=== PATIENT | male | born 1955 | race Caucasian/White ===

== ENCOUNTER 2017-07-10 19:42 | Emergency (ER) | payer OTHER ==
[~2017-07-10] VITALS: Ht 185.4 cm; Wt 72.6 kg
[2017-07-10 20:49] LABS: ABSOLUTE BASOPHIL COUNT 0.1 /CUMM (0.0-0.2); ABSOLUTE EOSINOPHIL COUNT 0.4 /CUMM (0.0-0.7); ABSOLUTE GRANULOCYTE CT 6.2 /CUMM (1.4-6.5); ABSOLUTE LYMPH COUNT 1.4 /CUMM (1.2-3.4); BASOPHIL % 0.9 % (0.0-2.0); EOSINOPHIL % 4.6 % (0-5); HEMATOCRIT 26.1 % (42-52); MEAN CORPUSCULAR HGB 27.2 PG (27.0-31.0); MEAN CORPUSCULAR HGB CONC 32.9 G/DL (33.0-37.0); MEAN CORPUSCULAR VOLUME 82.6 FL (80.0-94.0); MEAN PLATELET VOLUME 6.4 FL (7.4-10.4); PLATELET COUNT 394 /CUMM (130-400); RBC DISTRIBUTION WIDTH 16.2 % (11.5-14.5); RED BLOOD CELL CT 3.16 /CUMM (4.70-6.10); WHITE BLOOD CELL COUNT 9.1 /CUMM (4.8-10.8)
--- NOTE | 2017-07-10 21:20 | ED GENERAL ADULT ---
History of Present Illness General Chief Complaint: General Adult Stated Complaint: [facility], LOW MAGNISIUM LEVEL Source: patient Exam Limitations: no limitations Vital Signs & Intake/Output Vital Signs & Intake/Output Vital Signs Date Time Temp Pulse Resp B/P B/P Pulse O2 O2 Flow FiO2 Mean Ox Delivery Rate 07/10 2210 98.5 70 20 140/79 100 Room Air 07/10 2049 97 Room Air 07/10 2001 98.1 84 18 120/82 98 Room Air Allergies Coded Allergies: Cephalosporins (RASH 07/10/17) hydromorphone (From DILAUDID) (RASH 07/10/17) Reconcile Medications Magnesium Oxide (Mag-Oxide) 200 MG MAGNESIUM TABLET 1 TAB PO DAILY HYPOMAG Triage Note: PT FROM HOME C/O CALLED IN BY MD MAHER OUT OF [facility] INFORMING PT THAT HIS MAG LEVELS ARE DANGEROUSLY LOW AND NEEDS TO BE SEEN IN AN ER RIGHT AWAY. PT IS A&0X3 IN TRIAGE, VSS. PT HAS BEEN IN HOSPITAL THE PAST X2 MONTHS D/T MULTIPLE COMPLICATIONS FROM AORTIC ANEURYSM SX. Triage Nurses Notes Reviewed? yes Onset: Abrupt Duration: day(s): (1), constant, continues in ED Timing: single episode today Injury Environment: home Severity: moderate, severe No Modifying Factors: none HPI: 62 year old male hx of htn, aaa, hld, gerd and anxiety presents for eval of low magnesium. pt was recenlty released from [facility] after a prolonged hospitalization related to aa repair with complications that included felton requiring dialysis. pt reprots he recieved a phone call from a doctor there saying he needed to go to the ED due to hisd mag being very low. pt has never had tghis before. he is feeling weak but otheriwse has not concerns. (Maxim Trevino) Past History Travel History Traveled to [place] past 21 day No Medical History Any Pertinent Medical History? see below for history Cardiovascular: aortic aneurysm, hypertension, hyperlipidemia Gastrointestinal: GERD Psychiatric: anxiety Blood Disorders: anemia Surgical History Surgical History: unobtainable Psychosocial History What is your primary language Iraqi Tobacco Use: Quit >30 days ago Family History Hx Contributory? No (Maxim Trevino) Review of Systems Review of Systems Constitutional: Reports: weakness. EENTM: Reports: no symptoms. Respiratory: Reports: no symptoms. Cardiovascular: Reports: no symptoms. GI: Reports: no symptoms. Genitourinary: Reports: no symptoms. Musculoskeletal: Reports: no symptoms. Skin: Reports: no symptoms. Neurological/Psychological: Reports: no symptoms. Hematologic/Endocrine: Reports: no symptoms. Immunologic/Allergic: Reports: no symptoms. All Other Systems: Reviewed and Negative (Maxim Trevino) Physical Exam Physical Exam General Appearance: well developed/nourished, no apparent distress, alert, awake Head: atraumatic, normal appearance Eyes: Bilateral: normal appearance, PERRL, EOMI. Ears, Nose, Throat: hearing grossly normal Neck: normal inspection, supple, full range of motion Respiratory: normal breath sounds, chest non-tender, no respiratory distress, lungs clear Cardiovascular: regular rate/rhythm, normal peripheral pulses Peripheral Pulses: 2+ radial (R), 2+ radial (L) Gastrointestinal: soft, non-tender Back: normal inspection, normal range of motion, no vertebral tenderness Extremities: normal inspection, normal range of motion, no edema Neurologic/Psych: no motor/sensory deficits, awake, alert, oriented x 3, normal gait, normal mood/affect Skin: intact, normal color, warm/dry Lymphatic: no anterior cervical adele Core Measures ACS in differential dx? No CVA/TIA Diagnosis: No Sepsis Present: No Sepsis Focused Exam Completed? No (Maxim Trevino) Progress Differential Diagnoses I considered the following diagnoses in my evaluation of the patient: [ electromyte abn] Plan of Care: Orders Procedure Date/time Status URINALYSIS 07/10 2256 Active EKG 07/10 2100 Active MAGNESIUM 07/10 1944 Complete COMPREHENSIVE METABOLIC PANEL 07/10 1944 Complete CBC WITHOUT DIFFERENTIAL 07/10 1944 Complete Current Medications Sig/Annemarie Start time Last Medication Dose Stop Time Status Admin Magnesium Sulfate 1 GM Q2H 07/105 AC 07/10 (Mag Sulfate in D5) 07/11 0144 2228 Dextrose/Water 100 ML (D5W) Laboratory Tests 07/10/172035: Anion Gap 14, Estimated GFR 32 L, BUN/Creatinine Ratio 13.8, Glucose 103 H, Calcium 7.8 L, Magnesium 0.7 *L, Total Bilirubin 0.2, AST 11 L, ALT 20 L, Alkaline Phosphatase 73, Total Protein 6.3, Albumin 3.3 L, Globulin 3.0, Albumin/Globulin Ratio 1.1, CBC w Diff NO MAN DIFF REQ, RBC 3.16 L, MCV 82.6, MCH 27.2, MCHC 32.9 L, RDW 16.2 H, MPV 6.4 L, Gran % 68.0, Lymphocytes % 15.1 L, Monocytes % 11.4 H, Eosinophils % 4.6, Basophils % 0.9, Absolute Granulocytes 6.2, Absolute Lymphocytes 1.4, Absolute Monocytes 1.0 H, Absolute Eosinophils 0.4, Absolute Basophils 0.1 pt seen and evaled. he his here with low mag. he is reporting weakness but no other symptoms. vitals are stable. mag leve is currenlty 0.7. iv mag ordered. ekg is sinus. k wnl. pt does have anemia and elevated CR of 2.1. it is not clear what his baseline is. will attempt to obtauin records from [facility]. it was reccomended to pt that he stay in [facility] for further eval and treatment of hypomag. pt does not want to stay he want to go home and go to [facility] tomorrow. he says he is supposed to have a surgical procedure there tomorrow. discussed with pt about risks of low mag, anenia and felton that include disability and , he is alert and oriated x3 and undersatnds these risks. he will be discharegd against medical advice. ama form signed. pt will be given oral mag. adivsed to follow up with [facility] tomorrow. return at any time with any concerns. case dfiscussed with dr sorto. Initial ED EKG: none (Maxim Trevino) Departure Departure Disposition: HOME OR SELF CARE Condition: Stable Clinical Impression Primary Impression: Hypomagnesemia Referrals: Patient Has No Primary Care Dr (PCP/Family) Departure Forms: Customer Survey General Discharge Information Prescriptions: Current Visit Scripts Magnesium Oxide (Mag-Oxide) 1 TAB PO DAILY #30 TAB (Maxim Trevino) PA/SEPTIC CLEANER Co-Sign Statement Statement: ED Attending supervision documentation- I saw and evaluated the patient. I have also reviewed all the pertinent lab results and diagnostic results. I agree with the findings and the plan of care as documented in the PA's/SEPTIC CLEANER's documentation. x I have reviewed the ED Record and agree with the PA's/SEPTIC CLEANER's documentation. [] Additions or exceptions (if any) to the PAs/SEPTIC CLEANER's note and plan are summarized below: [] (Dodie HOFFMAN,George) Critical Care Note Critical Care Note Critical Care Time: non-applicable (Salazar SANTILLAN,Maxim)
[2017-07-10] MEDS ORDERED: MAG-OXIDE200 MG PO (23:50)
== END 2017-07-11 ==
LOC: ERH 19:42
PROVIDERS: Physician Assistant Medical
DX: E83.42 Hypomagnesemia (principal); I10 Essential (primary) hypertension; Z87.891 Personal history of nicotine dependence; D64.9 Anemia, unspecified
CPT/HCPCS: 93005; 93010; 96365; 96366; 99291